=== PATIENT | female | born 1940 | race Caucasian/White ===

== ENCOUNTER 2019-10-22 13:57 | Inpatient (IN) | payer BC ==
[~2019-10-22] VITALS: Ht 167.6 cm; Wt 87.1 kg
--- NOTE | ~2019-10-22 | EMS ---
[facility] [address] [facility] [address] EMS Patient Care Report Name: ZEFERINO OLIVARES Room: [facility].Octaviano#: [id number] Admission: 10/22/19 Attend Phys: Discharge: Date of : 42 Report #: [id number] THIS REPORT FOR: //name// Report Transmitted: 10/22/2019 13:48 EMS Care Summary VICENTE Parth MEDRANO Incident [id number] @ 10/22/2019 13:23 Incident Location [address] [place] [address] Patient ZEFERINO OLIVARES Female, 79 Years 1940 Patient Address [address] [place] [address] Patient History Unspecified atrial fibrillation, Patient Allergies No known allergies, Chief Complaint Pain Disposition Transported No Lights/[place] Reason Falls Transported To [facility] Narrative Dispatched to address noted for a fall. [facility] en route at time noted. Arrived and found the patient in her garage. Patient was laying on her left side and stated that she had slipped on the second step of three. Striking her right hip on the step. No head injury noted. No blood thinner use. No loss of consciousness. Patient stated that she had pain in her groin area on her right side. CMS intact on right leg and no obvious trauma. No pain to lateral [address] [place] [address] EMS Patient Care Report Name: ZEFERINO OLIVARES Room: [facility]#: [id number] Admission: 10/22/19 Attend Phys: Discharge: Date of : 42 Report #: [id number] palpation or depression of hip. GCS 15. Patient was moved to stretcher with a ashok care asst and then buckled in. Once in ambulance, vitals where taken with IV and 4 lead obtained. No secondary trauma noted. While en route, vitals where taken again as noted. radio report given and nothing eventful happened. Arrived and took patient to room. Patient was moved to bed and RN was given verbal report. RN signed for patient and patient signed for self. END REPORT EMT-P Derick Drake Initial Vitals @13:31Pain: 04/15, @13:43Pain: 04/15, @13:36SpO2: 99, @13:37SpO2: 99, @13:40SpO2: 98, @13:45SpO2: 99, @13:50SpO2: 98, @13:50SpO2: 98, @13:36P: 79,R: 16,BP: 159/84,Revised Trauma: 8, @13:50P: 74,R: 16,BP: 135/64,Revised Trauma: 8, @13:36GCS: 15, @13:50GCS: 15, @13:31 @13:41Glucose: 128, Assessments @13:31MENTAL:SKIN:HEENT:LUNG SOUNDS:ABDOMEN:PELVIS//GI:EXTREMITIES:PULSE:NEURO: Impression Pelvic and Perineal Pain Procedures @13:41 cc () Site: Antecubital-LeftResponse: ImprovedSucceeded Timeline 13:22,Call Received 13:22,Dispatch Notified 13:,Psap Call 13:23,Dispatched 13:25,En Route 13:29,On Scene 13:31,At Patient 13:31,BP: / M,PULSE: ,RR: R,SPO2: Ox,ETCO2: ,BG: ,PAIN: 3,GCS: , 13:31,BP: / M,PULSE: ,RR: R,SPO2: Ox,ETCO2: ,BG: ,PAIN: ,GCS: , 13:36,BP: / M,PULSE: ,RR: R,SPO2: 99 Ox,ETCO2: ,BG: ,PAIN: ,GCS: , 13:36,BP: 159/84 M,PULSE: 79,RR: 16 R,SPO2: Ox,ETCO2: ,BG: ,PAIN: ,GCS: , [place] [address] EMS Patient Care Report Name: ZEFERINO OLIVARES Room: [facility]#: [id number] Admission: 10/22/19 Attend Phys: Discharge: Date of : 42 Report #: [id number] 13:36,BP: / M,PULSE: ,RR: R,SPO2: Ox,ETCO2: ,BG: ,PAIN: ,GCS: 15, 13:37,BP: / M,PULSE: ,RR: R,SPO2: 99 Ox,ETCO2: ,BG: ,PAIN: ,GCS: , 13:40,BP: / M,PULSE: ,RR: R,SPO2: 98 Ox,ETCO2: ,BG: ,PAIN: ,GCS: , 13:41, cc Site: Antecubital-Left,Response: ImprovedSucceeded, 13:41,BP: / M,PULSE: ,RR: R,SPO2: Ox,ETCO2: ,B,PAIN: ,GCS: , 13:43,Depart Scene 13:43,BP: / M,PULSE: ,RR: R,SPO2: Ox,ETCO2: ,BG: ,PAIN: 3,GCS: , 13:45,BP: / M,PULSE: ,RR: R,SPO2: 99 Ox,ETCO2: ,BG: ,PAIN: ,GCS: , 13:50,BP: / M,PULSE: ,RR: R,SPO2: 98 Ox,ETCO2: ,BG: ,PAIN: ,GCS: , 13:50,BP: / M,PULSE: ,RR: R,SPO2: 98 Ox,ETCO2: ,BG: ,PAIN: ,GCS: , 13:50,BP: 135/64 M,PULSE: 74,RR: 16 R,SPO2: Ox,ETCO2: ,BG: ,PAIN: ,GCS: , 13:50,BP: / M,PULSE: ,RR: R,SPO2: Ox,ETCO2: ,BG: ,PAIN: ,GCS: 15, 13:54,At Destination 14:07,Call Closed Disclaimer v1.1 Copyright 2020 [employer] This EMS Care Summary contains data elements from the applicable legal record (which may be displayed differently). It is designed to provide pertinent information for the following purposes: continuity of care, clinical quality, and state data reporting. The complete legal record is available to ED staff and administrators of the receiving hospital in [employer]'s Patient Tracker. All data is provided "as is."
[2019-10-22 14:10] VITALS: BP 141/61
[2019-10-22] MEDS ORDERED: ZESTRIL5 MG PO (14:14)
[2019-10-22] MEDS ORDERED: CRESTOR5 MG PO (14:15)
[2019-10-22 14:58] LABS: ABSOLUTE LYMPHOCYTES 1.9 thou/uL (0.8-5.3); ABSOLUTE MONOCYTES 0.5 thou/uL (0.0-1.2); ABSOLUTE NEUTROPHILS 5.3 thou/uL (1.6-8.1); BASOPHILS 0.4 %; EOSINOPHILS 0.2 %; HEMATOCRIT 42.3 % (37.0-47.0); HEMOGLOBIN 14.4 gm/dL (12.0-15.0); MCH 28.6 pg (26.0-34.0); MONOCYTES 6.5 %; MPV 7.8 fl. (7.2-11.1); NUCLEATED RBCS 0 /100WBC; PLATELET COUNT* 239 thou/uL (150-400); POLYS 67.9 %; RBC 5.04 mil/uL (4.20-5.00); RDW-CV 13.5 % (10.5-14.5); WBC 7.8 thou/uL (4.0-11.0)
[2019-10-22 15:01] LABS: APTT 24.5 Seconds (25.0-31.3); PROTIME 10.5 Seconds (9.20-11.50)
[2019-10-22 15:27] LABS: POTASSIUM 3.7 mmol/L (3.5-5.1)
[2019-10-22 15:28] LABS: ALBUMIN 3.9 g/dL (3.4-5.0); CALCIUM 8.8 mg/dL (8.5-10.1); TOTAL BILIRUBIN 0.7 mg/dL (<0.1-1.0); TOTAL PROTEIN 7.1 g/dL (6.4-8.2)
--- NOTE | 2019-10-22 16:45 | 2DMMODE ---
[place] [address] 2 D/M-MODE ECHOCARDIOGRAM Name: MARSHALLZEFERINO Montalvo Room: [place] [address] ADM IN [facility].#: [id number] Admission: 10/22/19 Attend Phys: Modesta Gay, Discharge: Date of : 42 Date of Service: 10/22/19 1644 Report #: [id number] THIS REPORT FOR: cc: Lakeisha Pinto MD, Diane S. MD Liston, Michael J. MD [facility] ~ APPROVED REPORT Study performed: 10/22/2019 15:28:20 EXAM: Comprehensive 2D, Doppler, and color-flow Echocardiogram Patient Location: In-Patient Room #: er Status: routine BSA: 1.93 HR: 80 bpm BP: 149/68 mmHg Rhythm: NSR Other Information Study Quality: Good Indications Pre-Op 2D Dimensions IVSd: 10.18 (7-11mm) LVOT Diam: 19.43 (18-24mm) LVDd: 39.73 mm PWd: 10.74 (7-11mm) Ascending Ao: 33.77 (22-36mm) LVDs: 26.47 (25-40mm) Aortic Root: 33.82 mm Volumes Left Atrial Volume (Systole) LA ESV Index: 27.00 mL/m2 Aortic Valve AoV Peak Tacho.: 1.96 m/s AO Peak Gr.: 15.30 mmHg AO Mean Gr.: 8.73 mmHg AO V2 VTI: 42.55 cm Mitral Valve E/A Ratio: 0.96 [place] [address] 2 D/M-MODE ECHOCARDIOGRAM Name: MARSHALLZEFERINO Montalvo Room: [address] IN [facility]#: [id number] Admission: 10/22/19 Attend Phys: Modesta Gay, Discharge: Date of : 42 Date of Service: 10/22/19 1644 Report #: [id number] MV Decel. Time: 285.93 ms MV E Max Tacho.: 0.80 m/s MV PHT: 82.92 ms MVA (PHT): 2.65 cm2 TDI E/Lateral E': 6.67 E/Medial E': 5.33 Medial E' Tacho.: 0.15 m/s Lateral E' Tacho.: 0.12 m/s Pulmonary Valve PV Peak Tacho.: 1.21 m/s PV Peak Gr.: 5.86 mmHg Left Ventricle The left ventricle is normal size. There is normal LV segmental wall motion. Mild basal septal hypertrophy is present. Left ventricular outflow tract gradient is present. Left ventricular systolic function is normal. LVEF is 60-65%. Transmitral Doppler flow pattern suggests pseudonormalization. Right Ventricle The right ventricle is normal size. The right ventricular systolic function is normal. Atria Left atrium is mildly dilated. The right atrium size is normal. Aortic Valve Aortic valve is not well visualized. No aortic regurgitation is present. There is no aortic valvular stenosis. Mitral Valve The mitral valve is normal in structure. Trace mitral regurgitation. No evidence of mitral valve stenosis. Tricuspid Valve The tricuspid valve is normal in structure. Trace tricuspid regurgitation. Unable to assess PA pressure. Pulmonic Valve The pulmonary valve is normal in structure. There is no pulmonic valvular regurgitation. Great Vessels The aortic root is normal in size. IVC [place] [address] 2 D/M-MODE ECHOCARDIOGRAM Name: ZEFERINO OLIVARES Room: [address] IN .R.#: [id number] Admission: 10/22/19 Attend Phys: Modesta Gay, Discharge: Date of : 42 Date of Service: 10/22/19 1644 Report #: [id number] collapses >50% with inspiration. Pericardium There is no pericardial effusion. <Conclusion> The left ventricle is normal size. Mild basal septal hypertrophy is present. Left ventricular outflow tract gradient is present. Left ventricular systolic function is normal. LVEF is 60-65%. Transmitral Doppler flow pattern suggests pseudonormalization. Trace mitral regurgitation. Aortic valve is not well visualized. Trace tricuspid regurgitation. IVC is normal in size and collapses >50% with inspiration. <ELECTRONICALLY SIGNED> By: Gomez Palacios MD, FACC 10/22/191643 43 43 Gomez Palacios MD, FACC /INF
--- NOTE | 2019-10-22 17:22 | EKG ---
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
[2019-10-22 18:06] VITALS: BP 132/62
[2019-10-22 20:00] VITALS: BP 124/52; BP 137/78
[2019-10-23] VITALS: BP 125/54
--- NOTE | 2019-10-23 00:43 | NUR ---
PT ALERT ORIENTED. ON BR TONIGHT WITH FX R HIP. NPO AT TX FOR SURGICAL REPAIR. FENTYNAL FOR PAIN. TELEMETRY SHOWS SR. TURN Q 2 HR. VOID PER BP. WCTM
[2019-10-23 04:00] VITALS: BP 118/51
[2019-10-23 04:52] LABS: HEMATOCRIT 35.1 % (37.0-47.0); HEMOGLOBIN 12.5 gm/dL (12.0-15.0); MCH 29.4 pg (26.0-34.0); MCHC 35.7 g/dL (28.0-37.0); MCV 82.5 fL (80.0-100.0); MPV 7.7 fl. (7.2-11.1); RBC 4.25 mil/uL (4.20-5.00); RDW-CV 13.7 % (10.5-14.5); WBC 8.6 thou/uL (4.0-11.0)
[2019-10-23 04:55] LABS: CALCIUM 7.8 mg/dL (8.5-10.1); CREATININE 0.9 mg/dL (0.6-1.3)
[2019-10-23 05:00] LABS: APTT 26.1 Seconds (25.0-31.3); PROTIME 10.8 Seconds (9.20-11.50)
[2019-10-23 05:07] LABS: MAGNESIUM 1.6 mg/dL (1.8-2.4); TOTAL PROTEIN 5.8 g/dL (6.4-8.2)
--- NOTE | 2019-10-23 06:58 | NUR ---
PT REMAINS NPO FOR SURGERY. PAIN CONTROL MAINTAINED WITH MEDICATION.
[2019-10-23 07:57] VITALS: BP 141/51
[2019-10-23 08:00] VITALS: BP 141/57
[2019-10-23 08:49] LABS: URINE BILIRUBIN NEGATIVE (Negative); URINE BLOOD 1+ (Negative); URINE CLARITY CLEAR; URINE COLOR YELLOW; URINE GLUCOSE-RANDOM NEGATIVE (Negative); URINE KETONES NEGATIVE (Negative); URINE LEUKOCYTES-REFLEX NEGATIVE (Negative); URINE NITRITE-REFLEX NEGATIVE (Negative); URINE PROTEIN NEGATIVE (Negative)
--- NOTE | 2019-10-23 09:00 | NUR ---
ORTHO NOTIFIED OF PT FEVER THIS AM. UA RESULTS SHOW NO INFECTION. CXR ORDERED
[2019-10-23 09:32] LABS: BACTERIA-REFLEX 1-9 Few /HPF (None Seen); CASTS None Seen /LPF (None Seen); CRYSTALS None Seen /LPF (None Seen); MUCUS None Seen strn/LPF (None Seen); SQUAMOUS 0-3 Few /LPF (0-3); URINE RBC 3-10 Few /HPF (0-2); URINE WBC-REFLEX 0-5 Rare /HPF (0-5)
[2019-10-23 11:57] VITALS: BP 129/63
--- NOTE | 2019-10-23 12:00 | NUR ---
Pt is A&O. Resides at home with her . Normally independent. No DME. No hx of HH or SNF. Pt to have surgery today around 130 for right hip fx. Pt is hopeful that she will be able to return home with HH, but is open to rehab if absolutely necessary. Pt states that between her and her kids, she hopes that home will be a viable dc plan. Following.
--- NOTE | 2019-10-23 16:00 | NUR ---
PT BACK FROM OR. SILVER DRESSING TO RIGHT ANT HIP INTACT. IV INFUSING. PAIN WELL CONTROLLED. TOLERATING PO WELL
--- NOTE | 2019-10-23 18:09 | NUR ---
PT HAD SURGERY THIS AFTERNOON. PT TOLERATING PO WELL. VOIDING WELL PER BEDPAN. IVF INFUSING. PAIN WELL CONTROLLED.
[2019-10-23 19:30] VITALS: BP 126/60
[2019-10-24 00:30] VITALS: BP 123/81
[2019-10-24 04:32] VITALS: BP 104/44
[2019-10-24 05:03] LABS: HEMATOCRIT 29.5 % (37.0-47.0); MCH 29.5 pg (26.0-34.0); MCHC 35.3 g/dL (28.0-37.0); MCV 83.6 fL (80.0-100.0); RBC 3.54 mil/uL (4.20-5.00); RDW-CV 13.4 % (10.5-14.5)
[2019-10-24 05:06] LABS: HEMOGLOBIN 10.4 gm/dL (12.0-15.0)
--- NOTE | 2019-10-24 05:14 | NUR ---
PT SLEPT MOST OF SHIFT. ASSESSMENT DOCUMENTED. MEDS GIVEN PER E-APR. IV PATENT, FLUIDS INFUSING. PAIN MEDS GIVEN PER E-MAR. ICE PACK TO RIGHT HIP. DRESSING C/D/I. TYLENOL GIVEN FOR TEMP OF 103.1.
[2019-10-24 05:35] LABS: HEMATOCRIT 29.5 % (37.0-47.0); HEMOGLOBIN 10.4 gm/dL (12.0-15.0)
[2019-10-24 05:39] LABS: ALBUMIN 2.5 g/dL (3.4-5.0); CALCIUM 7.8 mg/dL (8.5-10.1); CREATININE 0.8 mg/dL (0.6-1.3); MAGNESIUM 1.5 mg/dL (1.8-2.4); POTASSIUM 3.9 mmol/L (3.5-5.1); TOTAL BILIRUBIN 1.3 mg/dL (<0.1-1.0); TOTAL PROTEIN 5.3 g/dL (6.4-8.2)
--- NOTE | 2019-10-24 07:11 | NUR ---
PT BLADDER SCANNNED READING 283 THIS AM.
[2019-10-24 07:30] VITALS: BP 130/57
--- NOTE | 2019-10-24 11:55 | NUR ---
Pt had surgery yesterday. OT eval today, Pt should be able to dc home with HH. Awaiting PT eval. Pt hopeful that she can dc home with HH, anticipate dc on Monday.
[2019-10-24 14:08] VITALS: BP 142/57
[2019-10-24 20:00] VITALS: BP 110/85
[2019-10-25 00:15] VITALS: BP 102/60
[2019-10-25 03:51] LABS: HEMATOCRIT 25.3 % (37.0-47.0); HEMOGLOBIN 9.2 gm/dL (12.0-15.0); MCH 29.8 pg (26.0-34.0); MCHC 36.1 g/dL (28.0-37.0); MCV 82.4 fL (80.0-100.0); MPV 7.9 fl. (7.2-11.1); RBC 3.08 mil/uL (4.20-5.00); RDW-CV 13.5 % (10.5-14.5); WBC 8.9 thou/uL (4.0-11.0)
[2019-10-25 04:00] VITALS: BP 104/47
[2019-10-25 04:03] LABS: MAGNESIUM 1.7 mg/dL (1.8-2.4); POTASSIUM 3.8 mmol/L (3.5-5.1)
--- NOTE | 2019-10-25 06:28 | NUR ---
Alert and oriented x 4. Rt hip mepilex dressing is dry and intact. She is wearing tedhose. She is with min assist to bathroom with gaitbelt and walker. She was febrile at 0000 and tylenol was given she is now afebrile. Shehas slept well.
[2019-10-25 07:30] VITALS: BP 112/38
[2019-10-25 16:12] VITALS: BP 118/43
--- NOTE | 2019-10-25 16:47 | NUR ---
SPOKE WITH PT.AND . SHE FEELS SHE WILL BE DISCHARGED TOMORROW. SHE W[facility] LIKE [facility] FOR [facility] HEALTH AT DISCHARGE. HAS WALKER AND STOOL RISER. CM CALLED IN [facility] PRESCRIPTION WRITTEN TO [facility] ON [address] IS $20. PT.INFORMED. [facility] PWHVXEOS-[phone]/ FAX [phone].
[2019-10-25 17:15] VITALS: BP 118/43
--- NOTE | 2019-10-25 17:53 | NUR ---
A&O X4, PWD. RIGHT HIP DRESSING C,D &I. SL LEFT AC, INTACT AND PATENT. LUNGS CLEAR 02 SAT 95% RA. +BS, REG. HEART TONES. PAIN PILL X 1 THIS AFTERNOON. UP SITTING IN CHAIR MOST OF DAY. MAG REPLACED TODAY. THIGH HIGH TEDS ON, SCD'S ON BED. BM YESTERDAY. WILL CONTINUE TO MONITOR.
[2019-10-25 20:10] VITALS: BP 130/57
--- NOTE | 2019-10-26 04:39 | NUR ---
PATIENT ASLEEP ON HOURLY ROUNDS. NO REQUEST FOR PAIN MEDS. NO REPORTS OF DISCOMFORT/NAUSEA. SHE IS ALERT AND ORIENTED. UP WITH ASSISTANCE, GAIT BELT AND WALKER TO COMMODE. WILL CONTINUE TO FOLLOW PLAN OF CARE.
[2019-10-26 07:45] VITALS: BP 141/62
[2019-10-26] MEDS ORDERED: ELIQUIS5 MG PO (08:32)
[2019-10-26] MEDS ORDERED: OXYCODONE HCL 55 MG PO (08:32)
--- NOTE | 2019-10-26 10:53 | NUR ---
DISCHARGE ORDERS FAXED TO [facility]. MESSAGE LEFT FOR ICE PLANT OPERATOR NURSE WITH [facility] TO NOTIFY OF DISCHARGE.
[2019-10-26 11:42] VITALS: BP 141/62
[2019-10-26 11:51] VITALS: BP 141/62
--- NOTE | 2019-10-26 13:39 | NUR ---
PATIENT DISCHARGED FROM UNIT AT 1335. ALERT AND ORIENTED X 4. VITAL SIGNS STABLE ON ROOM AIR. AFEBRILE. PAIN BEING MANAGED WITH PO MEDICATION. DENIES NAUSEA. MEDICATION INFORMATION, SCRIPTS, AND DISCHARGE INSTRUCTIONS GIVEN TO PATIENT. LEFT WITH ALL BELONGINGS. PATIENT LEFT WITH SPOUSE VIA CAR.
--- NOTE | 2019-10-28 11:45 | OP ---
[address] [address] OPERATIVE REPORT Name: ZEFERINO OLIVARES Room: [address] IN M.R.#: [id number] Admission: 10/22/19 Attend Phys: Modesta Gay MD Discharge: 10/26/19 Date of : 42 Report #: [id number] THIS REPORT FOR: //name// cc: Lakeisha Pinto MD, Diane S. MD ~ CC: Lakeisha Gay DICTATED BY: Deny Garcia DO DATE OF SERVICE: 10/23/2019 PREOPERATIVE DIAGNOSIS: Right displaced femoral neck fracture. POSTOPERATIVE DIAGNOSIS: Right displaced femoral neck fracture. PROCEDURE PERFORMED: Right hip bipolar hemiarthroplasty utilizing the Biomet hip system with the following components: 1. A size 14 Taperloc complete standard offset femoral stem. 2. A -3 mm neck. 3. A 51 mm outer shell. SURGEON: Raheem Laughlin DO TRAVELING ACCOUNTANT: Deny Garcia DO; Shawn Sawyer DO; Malia Arriaza DO. ANESTHESIA: Spinal. ESTIMATED BLOOD LOSS: 400 mL. ANTIBIOTICS: 2 grams Ancef IV preoperatively. SPECIMENS: None. COMPLICATIONS: None. CONDITION: The patient is stable to PACU. INDICATIONS FOR PROCEDURE: The patient is a pleasant 79-year-old female who presented to [facility] Emergency Department after a ground level fall. She fell onto her right side. She was unable to bear weight. Radiographs in the Emergency Department were obtained and demonstrated displaced femoral neck fracture. Treatment options were discussed in detail with the patient. Surgical intervention was recommended. Risks, benefits, alternatives and complications of right hip hemiarthroplasty were discussed in detail with [address] [address] OPERATIVE REPORT Name: MARSHALLZEFERINO Montalvo Room: [address] IN [facility].#: [id number] Admission: 10/22/19 Attend Phys: Modesta Gay MD Discharge: 10/26/19 Date of : 42 Report #: [id number] the patient and she wished to proceed. DESCRIPTION OF PROCEDURE: The patient was seen and examined in the preoperative holding area. The correct operative extremity was marked. Written consent was obtained. The patient was transferred to the operating room and a spinal anesthesia was administered. She was then placed supine on the [place] table. The legs were well padded and placed in the leg spars. All extremities were padded. The right lower extremity was then prepped and draped in the usual sterile fashion. Timeout was performed to verify the correct patient, procedure and operative extremity and all were in agreement. Next, procedure began with a direct anterior skin incision approximately 2 cm lateral and 2 cm distal to the anterior superior iliac spine. This was extended approximately 10 cm distally. Sharp dissection was carried down to the level of the tensor fascia. The tensor fascia was split in line with its fibers. This exposed the interval between the tensor fascia chu and sartorius. Blunt dissection was then performed to identify the lateral circumflex vessels. These were cauterized with the use of Aquamantys as well as electrocautery. Appropriate retractors were placed exposing the anterior aspect of the hip joint capsule. This was cauterized with the Aquamantys. A capsulotomy was then performed. A displaced femoral neck fracture was then visualized in the subcapital region of the femoral neck. A femoral neck cut was then performed with a sagittal saw, approximately 1 fingerbreadth above the lesser trochanter. The head and neck were removed. The head was sized to a size 51 mm head. The trial size 51 bipolar head was then inserted and the acetabulum was noted to have a great fit as well as a great suction. Attention was then turned to the femur. Appropriate retractors were placed. The femur was externally rotated. The posterior capsule was released to aid in visualization of the femur. The hip was then placed in the extended and adducted position and the bed hook was placed. This allowed excellent exposure of the femur. Femoral canal was then opened with the box osteotome as well as rat tail rasp. Next, the femur was sequentially broached up to a size 14. The size 14 was noted to have excellent fit and stability. This was trialed with various neck lengths. The -3 neck was noted to have excellent stability. Radiographs were obtained, which demonstrated appropriate leg lengths as well as appropriate positioning of the implants. The hip was then dislocated and the trial components were removed. The final components were inserted into position in standard fashion. The hip was then reduced again. The hip was taken through range of motion and noted to have excellent stability with no dislocation or subluxation. Final fluoroscopic images were obtained, which demonstrated again proper placement of the implants and appropriate leg lengths. The incision was then thoroughly irrigated with normal saline. The tensor fascia was closed with a running Stratafix suture. Subcutaneous layer was closed with 2-0 Vicryl in simple interrupted and inverted fashion followed by running 3-0 Stratafix and extended skin glue. Sterile dressing was applied. The patient was then awakened from anesthesia and [place] [address] OPERATIVE REPORT Name: ZEFERINO OLIVARES Room: [address] IN [facility]#: [id number] Admission: 10/22/19 Attend Phys: Modesta Gay MD Discharge: 10/26/19 Date of : 42 Report #: [id number] stable condition. The patient tolerated the procedure well. There were no complications. <ELECTRONICALLY SIGNED> By: Raheem Laughlin DO 10/28/19 1145 1605 1628Dakevin Laughlin DO /nt
== END 2019-10-26 13:35 | disposition home health service (06) | DRG 470 ==
LOC: M.ERS 13:57 → M.TBA-ER 15:06 → M.2W 15:06 → M.TBA-ER 15:06 → M.ORTHSURG 15:06 → M.2W 18:20 → M.ORTHSURG 10-24 18:50
PROVIDERS: Family Medicine; Orthopaedic Surgery; ADMIT Internal Medicine; ATTEND Internal Medicine
PROC: 0SRR03Z Replacement of Right Hip Joint, Femoral Surface with Ceramic Synthetic Substitute, Open Approach (ICD-10-PCS; principal; 2019-10-23)
DX: M80.051A Age-related osteoporosis with current pathological fracture, right femur, initial encounter for fracture (principal); J98.11 Atelectasis; I48.91 Unspecified atrial fibrillation; E88.09 Other disorders of plasma-protein metabolism, not elsewhere classified; Z20.828 Contact with and (suspected) exposure to other viral communicable diseases; Z85.3 Personal history of malignant neoplasm of breast; Z88.2 Allergy status to sulfonamides; Z92.3 Personal history of irradiation; Z79.899 Other long term (current) drug therapy